=== PATIENT | female | born 1975 | race Caucasian/White ===

== ENCOUNTER 2018-09-22 19:32 | Emergency (ER) | payer OTHER ==
[~2018-09-22] VITALS: Ht 160 cm; Wt 84.5 kg
--- NOTE | 2018-09-22 19:51 | NUR ---
PATIENT PRESENTS TO ED TODAY FOR LUQ PAIN X 1 WEEK WITH INTERMITTENT DIARRHEA AND FLATULENCE. DENIES PAINFUL URINATION, LMP - "GOING THROUGH MENOPAUSE". LBM TODAY. AWAITING MD ORDERS, CALL LIGHT WITHIN REACH.
[2018-09-22] MEDS ORDERED: SODIUM CHLORIDE FLUSH 10ML SYR IVF ONE (20:00)
[2018-09-22] MEDS ORDERED: birth control (20:14)
[2018-09-22] MEDS ORDERED: ESTR4INS VG (20:15)
[2018-09-22 20:27] LABS: BASOPHILS # (AUTO) 0.02 x10^3/uL (0-0.1); BASOPHILS % (AUTO) 0 % (0-1); EOSINOPHILS # (AUTO) 0.07 x10^3/uL (0-0.4); EOSINOPHILS % (AUTO) 1 % (1-7); LYMPHOCYTES # (AUTO) 2.06 x10^3/uL (1-3.4); LYMPHOCYTES % (AUTO) 31 % (22-44); MD NO; MEAN CORPUSCULAR HEMOGLOBIN 31.1 pg (27.0-34.8); MEAN CORPUSCULAR HGB CONC 33.3 g/dL (32.4-35.8); MEAN CORPUSCULAR VOLUME 93.2 fL (80-100); MEAN PLATELET VOLUME 9.3 fL (7.4-10.4); MONOCYTES # (AUTO) 0.32 x10^3/uL (0.2-0.8); MONOCYTES % (AUTO) 5 % (2-9); NEUTROPHILS # (AUTO) 4.15 x10^3/uL (1.8-6.8); NEUTROPHILS % (AUTO) 63 % (42-75); PLATELET COUNT 174 x10^3/uL (130-400); RED BLOOD COUNT 4.95 x10^6/uL (3.82-5.3); RED CELL DISTRIBUTION WIDTH 12.9 % (9.6-15.2)
--- NOTE | 2018-09-22 20:27 | NUR ---
PATIENT AMB WITH STEADY GAIT TO BATHROOM, UA COLLECTED AND SENT TO LAB. IV ESTABLISHED, LABS DRAWN AND SENT TO LAB. AWAITING CT, VS UPDATED IN CHART. [facility] CALL LIGHT WITHIN REACH.
[2018-09-22 20:32] LABS: MICROSCOPIC AUTO
[2018-09-22 20:37] LABS: ALANINE AMINOTRANSFERASE 31 U/L (12-78); ALBUMIN 4.2 g/dL (3.4-5.0); ANION GAP 7 mmol/L (5-15); CALCIUM 9.2 mg/dL (8.5-10.1); CHLORIDE 109 mmol/L (98-107); CREATININE 1.08 mg/dL (0.55-1.02)
[2018-09-22 20:40] LABS: ALKALINE PHOSPHATASE 45 U/L (45-117); BILIRUBIN,TOTAL 0.3 mg/dL (0.2-1.0); TOTAL PROTEIN 8.2 g/dL (6.4-8.2)
[2018-09-22 20:43] LABS: CULTURE INDICATED? YES
--- NOTE | 2018-09-22 20:57 | NUR ---
VS UPDATED IN CHART, LAB RESULTS BACK, AWAITING CT AT THIS TIME. PATIENT SITTING IN [facility].
--- NOTE | 2018-09-22 21:06 | NUR ---
Coretta randall in ED - 09/22/18 at 2[address] OD[address]YS PATIENT [address] VIA [facility]. REPORT TO ELMER ANDERSON, AND ELMER HUERTA.
[2018-09-22] MEDS ORDERED: OMNIPAQUE 350 MG/ML, 100ML BOTTLE ONE (21:17)
--- NOTE | 2018-09-22 21:33 | NUR ---
2100 report recieved from Jahaira RN, pt back from CT, VS WNL, waiting for results.
[2018-09-22 21:38] VITALS: BP 129/85
--- NOTE | 2018-09-22 22:52 | NUR ---
DC EDUCATION PROVIDED, PT DEMONSTRATES UNDERSTANDING. PT AMBULATED STEADILY TO DC WITH RN
== END 2018-09-22 22:53 | disposition home or self-care (01) ==
LOC: ED 22:06
DX: N30.00 Acute cystitis without hematuria (principal)
CPT/HCPCS: 36415; 74177; 80053; 81001; 83690; 84703; 85025; 87086; 99284; Q9967

== ENCOUNTER 2020-07-23 17:17 | Emergency (ER) | payer OTHER ==
[~2020-07-23] VITALS: Ht 160 cm; Wt 87.5 kg
[~2020-07-23 17:17] MED LIST: ESTR4INS VG; birth control
--- NOTE | 2020-07-23 17:59 | NUR ---
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
--- NOTE | 2020-07-23 18:10 | NUR ---
ERMD AT BEDSIDE FOR EVALUATION. PT REPORTS LEFT FLANK AND LEFT ABD PAIN SINCE LAST NIGHT, WITH INTERMITTENT PAIN BETWEEN SHOULDERS
[2020-07-23 18:24] LABS: MICROSCOPIC INDICATED
[2020-07-23 18:31] LABS: BASOPHILS % (AUTO) 1 % (0-1); EOSINOPHILS % (AUTO) 1 % (1-7); LYMPHOCYTES % (AUTO) 32 % (22-44); MEAN CORPUSCULAR HEMOGLOBIN 30.5 pg (27.0-34.8); MEAN CORPUSCULAR HGB CONC 33.6 g/dL (32.4-35.8); MEAN PLATELET VOLUME 8.9 fL (7.4-10.4); MONOCYTES % (AUTO) 6 % (2-9); NEUTROPHILS % (AUTO) 60 % (42-75); PLATELET COUNT 179 x10^3/uL (130-400); RED BLOOD COUNT 4.79 x10^6/uL (3.82-5.3); RED CELL DISTRIBUTION WIDTH 12.8 % (9.6-15.2)
[2020-07-23 18:33] LABS: MD NO
[2020-07-23 18:41] LABS: ALANINE AMINOTRANSFERASE 28 U/L (12-78); ALBUMIN 3.9 g/dL (3.4-5.0); ANION GAP 6 mmol/L (5-15); CALCIUM 8.9 mg/dL (8.5-10.1); CHLORIDE 110 mmol/L (98-107); CREATININE 0.92 mg/dL (0.55-1.02)
--- NOTE | 2020-07-23 18:45 | NUR ---
REPORT RECEIVED FROM ZACKARY PAYNE
[2020-07-23 18:46] LABS: ALKALINE PHOSPHATASE 53 U/L (45-117); BILIRUBIN,TOTAL 0.3 mg/dL (0.2-1.0); TOTAL PROTEIN 7.4 g/dL (6.4-8.2); TROPONIN I < 0.015 ng/mL (0.000-0.045)
[2020-07-23 19:02] VITALS: BP 134/86
--- NOTE | 2020-07-23 20:01 | NUR ---
PT SITTING UPRIGHT ON [facility] VSS. PT REPOSTITIONED IN BED. DENIES ANY ADDITIONAL NEEDS AT THIS TIME. CALL LIGHT AND PERSONAL BELONGINGS WITHIN REACH
--- NOTE | 2020-07-23 20:08 | NUR ---
ERP AT BEDSIDE
--- NOTE | 2020-07-23 20:27 | NUR ---
Patient given discharge instructions and they have confirmed that they understand the instructions. Patient ambulatory with steady gait.
== END 2020-07-23 20:35 | disposition home or self-care (01) ==
LOC: ED 20:20
DX: N30.00 Acute cystitis without hematuria (principal); R07.9 Chest pain, unspecified; R94.31 Abnormal electrocardiogram [ECG] [EKG]; Z87.442 Personal history of urinary calculi
CPT/HCPCS: 36415; 71045; 76700; 80053; 81001; 83690; 84484; 84703; 85025; 85379; 87086; 93005; 99285